=== PATIENT | male | born 1970 | race Caucasian/White ===

== ENCOUNTER 2021-06-30 11:05 | Emergency (ER) | payer OTHER ==
[2021-06-30 12:01] LABS: BASOPHIL 0.1 % (0-2); EOSINOPHIL 0 % (0-5); HCT 45.7 % (42.0-52.0); HGB 15.4 g/dl (13.2-18.0); LYMPHOCYTE 4.9 % (15-48); MCH 30.3 pg (25.0-31.0); MCHC 33.7 g/dL (32.0-36.0); MCV 89.8 fL (78.0-100.0); MONOCYTE 4.7 % (0-12); MPV 10.8 fL (6.0-9.5); NEUTROPHIL 89.4 % (41-80); NRBC 0; PLT 183 K/uL (150-400); RBC 5.09 M/uL (4.70-6.00); RDW 12.9 % (11.5-14.0); WBC 10.5 K/uL (4.0-10.5)
[2021-06-30 12:44] LABS: LACTIC ACID 2.5 mmol/L (0.4-1.9)
[2021-06-30 12:48] LABS: IRON % SATURATION 9.9 %SAT (20-50)
[2021-06-30 13:07] LABS: PRO-BNP 69 pg/mL (<125)
[2021-06-30 13:11] LABS: BILIRUBIN - TOTAL 0.5 mg/dL (0.2-1.0); BUN/CREAT RATIO (CALC) 19.6 RATIO; C-REACTIVE PROTEIN 11.8 mg/dL (<=0.90); CREATININE 0.97 mg/dL (0.67-1.17); GLOBULIN (CALCULATION) 4.1 g/dL; MAGNESIUM 2.2 mg/dL (1.8-2.4); TOTAL PROTEIN 7.1 g/dL (6.4-8.2)
[2021-06-30] MEDS ORDERED: VENTOLIN HFA IN18 GM INH (18:30)
[2021-06-30] MEDS ORDERED: MEDROL 4MG DOSEP4 MG PO (18:30)
== END 2021-06-30 18:40 | disposition home or self-care (01) ==
LOC: FER 11:05
PROVIDERS: Emergency Medicine
DX: U07.1 COVID-19 (principal); I10 Essential (primary) hypertension; Z88.0 Allergy status to penicillin; Z79.899 Other long term (current) drug therapy
CPT/HCPCS: 36415; 71045; 80053; 82728; 83036; 83540; 83550; 83605; 83615; 83735; 83880; 84145; 84484; 85025; 86140; 93005; M0243; Q0244